=== PATIENT | female | born 1960 | race Caucasian/White ===

== ENCOUNTER 2017-11-02 13:29 | Day surgery (SDC) | payer OTHER, BC ==
[2017-11-01 16:40] VITALS: BMI 29.1
[2017-11-02] MEDS ORDERED: DEXAMETHASONE SOD PHOSPHATE/PF 10 MG/ML SDV ONE (15:00)
[2017-11-02] MEDS ORDERED: ROPIVACAINE HCL 0.5% 30ML VIAL ONE (15:01)
[2017-11-02] MEDS ORDERED: MIDAZOLAM HCL 2 MG/2 ML SINGLE DOSE VIAL ONE (15:01)
[2017-11-02] MEDS ORDERED: PROPOFOL 20 ML ONE ×4 (16:51→17:29)
--- NOTE | 2017-11-02 18:29 | OP ---
DATE OF OPERATION: 11/02/2017 PREOPERATIVE DIAGNOSIS: Left comminuted intraarticular displaced distal radius fracture. POSTOPERATIVE DIAGNOSIS: Left comminuted intraarticular displaced distal radius fracture. OPERATIVE PROCEDURE: 1. Open reduction and internal fixation of left comminuted intraarticular displaced distal radius fracture with internal fixation of 3 or more fragments. 2. Left brachioradialis tenotomy. SURGEON: Juan Burrell MD DIRECTOR OF FINANCIAL AID: CHRISTIN Rowley ANESTHESIA: Regional. COMPLICATIONS: None. ESTIMATED BLOOD LOSS: Minimal. INDICATIONS FOR PROCEDURE: The patient is a 57-year-old female, who presented with the above finding, indicated for operative treatment. Risks, benefits, alternatives were discussed with her at length and proper informed consent was obtained. PROCEDURE: After proper identification of the patient and the correct operative site, patient was brought to operating room, placed supine on the operating table, all prominences well padded. Regional anesthesia had been given by the anesthesiologist and was adequate for procedure. Intravenous antibiotics were given. Timeout procedure was performed. Left upper extremity was prepped and draped in the usual sterile fashion. A well-padded tourniquet was placed over the sterile prep. Esmarch bandage used to exsanguinate the left upper extremity, tourniquet was inflated to 250 mmHg. A longitudinal volar incision made over the flexor carpi radialis tendon. Incision was taken sharply through the skin, with blunt and sharp dissection through subcutaneous tissues. Flexor carpi radialis tendon along with the contents of the carpal canal were bluntly and gently retracted in ulnarward direction for the remainder of procedure. The pronator quadratus was found to be significantly ruptured and was elevated off of the distal radius. Highly comminuted intraarticular and metaphysial fractures were noted, with multiple fracture planes visualized. Significant displacement was visualized. Brachioradialis tenotomy was performed in order to free the radial styloid fragments in order to achieve reduction. Fracture fragments were repaired intra-focally to satisfactory position and then held with manual reduction technique. When satisfactory reduction was achieved, an Acumed Acu-Loc 2 distal radius plate was placed volarly with distal locking screws and proximal nonlocking screws. This provided secure stable fixation with satisfactory alignment confirmed radiographically. Full range of motion was achieved, without any instability of the fracture. Ulnar styloid fragment was present but there was no evidence of distal radioulnar joint instability. Scapholunate interval was stable to stress examination radiographically. The wound was irrigated with saline. Pronator quadratus was repaired with 4-0 Vicryl suture, skin was repaired in layers with 4-0 Vicryl and 3-0 nylon suture. Sterile dressings were applied. Splint was placed. Patient was reversed from anesthesia brought to recovery room in stable condition. She tolerated the procedure well. Zaid Amador, the chemistry research assistant, was integral throughout the procedure. The procedure could not have been performed without a skilled operative chemistry research assistant. JUAN BURRELL M.D. [id number]
[2017-11-02 18:45] VITALS: TEMP 98.3
[2017-11-02 19:20] VITALS: BP 120/74; PULSE 74
== END 2017-11-02 19:20 | disposition home or self-care (01) ==
LOC: FASU 13:29
PROVIDERS: ATTEND Orthopaedic Surgery Hand Surgery
PROC: 0LN60ZZ Release Left Lower Arm and Wrist Tendon, Open Approach (ICD-10-PCS; 2017-11-02)
PROC: 0PSJ04Z Reposition Left Radius with Internal Fixation Device, Open Approach (ICD-10-PCS; principal; 2017-11-02 16:54)
DX: S52.532A Colles' fracture of left radius, initial encounter for closed fracture (principal); X58.XXXA Exposure to other specified factors, initial encounter; Y93.9 Activity, unspecified; Y92.9 Unspecified place or not applicable
CPT/HCPCS: 73090-TC-LT-FY; 94760